=== PATIENT | male | born 1960 | race Caucasian/White ===

== ENCOUNTER 2016-09-28 07:37 | Day surgery (SDC) | payer BC ==
--- NOTE | ~2016-09-28 | EGD ---
EGD REPORT [facility] [address] [place]. [address] NAME: BALWINDER RICHARDSON : 58 STATUS : REG [facility]#: [id number] AGE: 55 ADM/REG DATE : 09/28/16 MR#: [id number] REPORT SERV DATE: 09/28/16 DICTATED BY: INDIRA BRADFROD DATE: 09/28/16 REPORT STATUS : Draft [facility]: [facility] DATE: 09/28/16 Endoscopy Center Patient Name: Balwinder Richardson Date of : 1960 Attending MD: INDIRA BRADFORD MD Procedure Date No Time: 09/28/2016 Procedure: Upper GI endoscopy Indications: Heartburn; Omeprazole 40mg daily. Patient Profile: Informed consent was obtained from the patient by me prior to the procedure. Risks, benefits, and alternatives were discussed including the risk of bleeding, perforation, infection, reaction to medicine, missed lesion, and cardiopulmonary complications. Referring MD: NUHA GALLO Medicines: Monitored Anesthesia Care Complications: No immediate complications. Procedure: Pre-Anesthesia Assessment: - ASA Grade Assessment: III - A patient with severe systemic disease. After obtaining informed consent, the endoscope was passed under direct vision. Throughout the procedure, the patient's blood pressure, pulse, and oxygen saturations were monitored continuously. The GIF [id number] was introduced through the mouth, and advanced to the second part of duodenum. The endoscope was withdrawn with careful examination all mucosal surfaces including retroflexion stomach. The upper GI endoscopy was accomplished without difficulty. The patient tolerated the procedure well. Findings: The first part of the duodenum and 2nd part of the duodenum were normal. Biopsies were taken with a cold forceps for histology. A single 3 mm sessile polyp was found in the gastric antrum. The polyp was removed with a cold biopsy forceps. Resection and retrieval were complete. The cardia, gastric fundus, gastric body and gastric antrum were normal. The examined esophagus was normal. The esophagus and gastroesophageal junction were examined with white light. There was no visual evidence of Mendoza's esophagus. Impression: - Normal first part of the duodenum and 2nd part of the duodenum. Biopsied. - A single gastric polyp. Resected and retrieved. - Normal cardia, gastric fundus, gastric body and antrum. EGD REPORT [address] [address] NAME: BALWINDER RICHARDSON : [birth year] STATUS : [facility] [place]#: [id number] AGE: 55 ADM/REG DATE : 09/28/16 MR#: [id number] REPORT SERV DATE: 09/28/16 DICTATED BY: INDIRA BRADFORD DATE: 09/28/16 REPORT STATUS : Draft TRANSCRIBED BY: [employer] DATE: 09/28/16 - Normal esophagus. - There is no endoscopic evidence of Mendoza's esophagus. Recommendation: - Patient has a contact number available for emergencies. The signs and symptoms of potential delayed complications were discussed with the patient. Return to normal activities tomorrow. Written discharge instructions were provided to the patient. - Regular diet. - Continue present medications. - Await pathology results. - Taper Omeprazole as tolerated. Procedure Code(s): --- Professional --- 95712, Esophagogastroduodenoscopy, flexible, transoral; with biopsy, single or multiple Diagnosis Code(s): --- Professional --- K31.7, Polyp of stomach and duodenum R12, Heartburn CPT copyright 2013 [employer]. All rights reserved. The codes documented in this report are preliminary and upon cash room clerk review may be revised to meet current compliance requirements. INDIRA BRADFORD MD 09/28/2016 9:45 AM This report has been signed electronically. Number of Addenda: 0 Note Initiated On: 09/28/2016 9:31 AM Scope Withdrawal Time 0 hours 0 minutes 0 seconds [address] [place] [address]
--- NOTE | ~2016-09-28 | EGD ---
EGD REPORT [facility] [address] [address] NAME: BALWINDER RICHARDSON : [birth year] STATUS : REG [facility]#: [id number] AGE: 55 ADM/REG DATE : 09/28/16 MR#: [id number] REPORT SERV DATE: 09/28/16 DICTATED BY: INDIRA BRADFORD DATE: 09/28/16 REPORT STATUS : Draft [facility]: [facility] DATE: 09/28/16 Endoscopy Center Patient Name: Balwinder Richardson Date of : 1960 Attending MD: INDIRA BRADFORD MD Procedure Date No Time: 09/28/2016 Procedure: Colonoscopy Indications: Screening for colorectal malignant neoplasm; average risk; index exam. Patient Profile: Informed consent was obtained from the patient by me prior to the procedure. Risks, benefits, and alternatives were discussed including the risk of bleeding, perforation, infection, reaction to medicine, missed lesion, and cardiopulmonary complications. Referring MD: NUHA GALLO Medicines: Monitored Anesthesia Care Complications: No immediate complications. Procedure: Pre-Anesthesia Assessment: - ASA Grade Assessment: III - A patient with severe systemic disease. After I obtained informed consent, the scope was passed under direct vision. Throughout the procedure, the patient's blood pressure, pulse, and oxygen saturations were monitored continuously. The CF [id number] was introduced through the anus and advanced to the cecum, identified by appendiceal orifice and ileocecal valve. The colonoscope was slowly withdrawn with careful examination all mucosal surfaces including specific attention around flexures and tip deflection behind folds; retroflexion performed in rectum. The colonoscopy was performed without difficulty. The patient tolerated the procedure well. The quality of the bowel preparation was adequate. The ileocecal valve, appendiceal orifice and rectum were photographed. Findings: A sessile polyp was found in the ascending colon. The polyp was 5 mm in size. The polyp was removed with a cold biopsy forceps. Resection and retrieval were complete. Two sessile polyps were found in the transverse colon. The polyps were 5 mm in size. These polyps were removed with a cold biopsy forceps. Resection and retrieval were complete. Five sessile polyps were found in the transverse colon. The polyps were 8 to 10 mm in size. These polyps were removed with a cold snare. Resection and retrieval were complete. EGD REPORT [place] [id number] [facility] [place]. [address] NAME: BALWINDER RICHARDSON : [birth year] STATUS : [place] [facility] [place] PAT#: [id number] AGE: 55 ADM/REG DATE : 09/28/16 MR#: [id number] REPORT SERV DATE: 09/28/16 DICTATED BY: INDIRA BRADFORD DATE: 09/28/16 REPORT STATUS : Draft TRANSCRIBED BY: [facility] DATE: 09/28/16 Two sessile polyps were found in the descending colon. The polyps were 7 to 10 mm in size. These polyps were removed with a cold snare. Resection and retrieval were complete. A sessile polyp was found in the sigmoid colon. The polyp was 5 mm in size. The polyp was removed with a cold biopsy forceps. Resection and retrieval were complete. Internal hemorrhoids were found during retroflexion and were mild. Impression: - One 5 mm polyp in the ascending colon. Resected and retrieved. - Two 5 mm polyps in the transverse colon. Resected and retrieved. - Five 8 to 10 mm polyps in the transverse colon. Resected and retrieved. - Two 7 to 10 mm polyps in the descending colon. Resected and retrieved. - One 5 mm polyp in the sigmoid colon. Resected and retrieved. - Internal hemorrhoids. Recommendation: - Patient has a contact number available for emergencies. The signs and symptoms of potential delayed complications were discussed with the patient. Return to normal activities tomorrow. Written discharge instructions were provided to the patient. - Regular diet. - Await pathology results. - Continue present medications. - Repeat colonoscopy for surveillance based on pathology results. Procedure Code(s): --- Professional --- 37750, Colonoscopy, flexible, proximal to splenic flexure; with removal of tumor(s), polyp(s), or other lesion(s) by snare technique 07067, 59, Colonoscopy, flexible, proximal to splenic flexure; with biopsy, single or multiple Diagnosis Code(s): --- Professional --- D12.5, Benign neoplasm of sigmoid colon D12.4, Benign neoplasm of descending colon D12.3, Benign neoplasm of transverse colon D12.2, Benign neoplasm of ascending colon K64.8, Other hemorrhoids Z12.11, Encounter for screening for malignant neoplasm of colon EGD REPORT [facility] [address] [place]. [address] NAME: BALWINDER RICHARDSON : [birth year] STATUS : [place] [facility] [place] PAT#: [id number] AGE: 55 ADM/REG DATE : 09/28/16 MR#: [id number] REPORT SERV DATE: 09/28/16 DICTATED BY: INDIRA BRADFORD. DATE: 09/28/16 REPORT STATUS : Draft TRANSCRIBED BY: [employer] DATE: 09/28/16 CPT copyright 2013 [employer]. All rights reserved. The codes documented in this report are preliminary and upon singing messenger review may be revised to meet current compliance requirements. INDIRA BRADFORD MD 09/28/2016 10:15 AM This report has been signed electronically. Number of Addenda: 0 Note Initiated On: 09/28/2016 9:21 AM Scope Withdrawal Time 0 hours 23 minutes 24 seconds [address] [place] [address]
[~2016-09-28 07:37] MED LIST: ACET500CAP PO; ADVIL PO; ALEVE220 MG PO; ALLEGRA180 PO; ASAB PO; CLARINEX5 MG PO; CLARIT10 PO; FOLTX PO; HUMAPUMP SC; INVOKANA100 MG PO; L20 PO; LIPITOR20 PO; LISINOPRIL40 MG PO; MAX25 PO; MICRO-K10 MEQ PO; MULTIVIT/MIN PO; MULTIVITAMI1 PO; NAP500 PO; NIASPAN500 PO; PRILO PO; SYN.05 PO; SYN1 PO; T PO; TRULICITY1.5 MG/0.5 SQ; TUMSROLL PO; ULTRAM50 PO; VITD PO; WELL100 PO; ZYRTEC ALLGY10 MG PO
== END 2016-09-28 23:59 | disposition home or self-care (01) ==
LOC: DMU 07:37
PROVIDERS: Internal Medicine Gastroenterology
PROC: 0DBL8ZZ Excision of Transverse Colon, Via Natural or Artificial Opening Endoscopic (ICD-10-PCS; 2016-09-28)
PROC: 0DB98ZX Excision of Duodenum, Via Natural or Artificial Opening Endoscopic, Diagnostic (ICD-10-PCS; 2016-09-28)
PROC: 0DB68ZZ Excision of Stomach, Via Natural or Artificial Opening Endoscopic (ICD-10-PCS; 2016-09-28)
PROC: 0DBK8ZZ Excision of Ascending Colon, Via Natural or Artificial Opening Endoscopic (ICD-10-PCS; principal; 2016-09-28 09:00)
PROC: 0DBN8ZZ Excision of Sigmoid Colon, Via Natural or Artificial Opening Endoscopic (ICD-10-PCS; 2016-09-28 09:00)
PROC: 0DBM8ZZ Excision of Descending Colon, Via Natural or Artificial Opening Endoscopic (ICD-10-PCS; 2016-09-28 09:00)
DX: Z12.11 Encounter for screening for malignant neoplasm of colon (principal); K63.5 Polyp of colon; D12.3 Benign neoplasm of transverse colon; D12.4 Benign neoplasm of descending colon; D12.5 Benign neoplasm of sigmoid colon; K29.50 Unspecified chronic gastritis without bleeding; K64.8 Other hemorrhoids; K21.9 Gastro-esophageal reflux disease without esophagitis; I10 Essential (primary) hypertension; E11.40 Type 2 diabetes mellitus with diabetic neuropathy, unspecified; E03.9 Hypothyroidism, unspecified; H26.9 Unspecified cataract; F32.9 Major depressive disorder, single episode, unspecified; G47.30 Sleep apnea, unspecified; Z88.2 Allergy status to sulfonamides; Z88.0 Allergy status to penicillin; Z88.1 Allergy status to other antibiotic agents; Z97.4 Presence of external hearing-aid; Z96.41 Presence of insulin pump (external) (internal); Z79.4 Long term (current) use of insulin; Z79.82 Long term (current) use of aspirin; Z79.899 Other long term (current) drug therapy; Z98.890 Other specified postprocedural states
CPT/HCPCS: 82962; 88305